=== PATIENT | male | born 1990 | race Native Hawaiian/Other Pacific Islander ===

== ENCOUNTER 2024-01-25 21:32 | Emergency (ER) | payer OTHER ==
[~2024-01-25] VITALS: Ht 180.3 cm; Wt 114.8 kg
[2024-01-25 21:45] VITALS: BP 130/89; PULSE 64; RESP 16; TEMP 98.3; O2SAT 98
[2024-01-25] MEDS ORDERED: AMOX-580 PO (22:03)
[2024-01-25] MEDS ORDERED: CIPR7.5D7 EACH EAR (22:03)
== END 2024-01-25 22:13 | disposition home or self-care (01) ==
LOC: ER 21:33
DX: H66.92 Otitis media, unspecified, left ear (principal)
CPT/HCPCS: 99283